=== PATIENT | female | born 1975 | race Caucasian/White ===

== ENCOUNTER 2016-08-22 18:03 | Emergency (ER) | payer OTHER ==
[~2016-08-22 18:03] MED LIST: CLON1TAB PO; FLUV50TA10 PO; METH10TA4 PO
== END 2016-08-22 18:47 | disposition left against medical advice (07) ==
LOC: ER 18:08
DX: Z53.21 Procedure and treatment not carried out due to patient leaving prior to being seen by health care provider (principal)

== ENCOUNTER 2016-09-27 13:35 | Emergency (ER) | payer OTHER ==
[~2016-09-27] VITALS: Ht 167.6 cm; Wt 61.7 kg
[2016-09-27] MEDS ORDERED: IV NORMAL SALINE 1000 ML BAG IV ONE (14:15)
[2016-09-27 14:32] LABS: BILIRUBIN,DIRECT 0.1 mg/dL (0.0-0.2); BILIRUBIN,TOTAL 0.2 mg/dL (0.2-1.0); CREATININE 0.8 mg/dL (0.6-1.3); POTASSIUM 3.9 mmol/L (3.5-5.1); TOTAL PROTEIN, SERUM 7.4 g/dL (6.4-8.2)
[2016-09-27 14:42] LABS: BASOPHILS % (AUTO) 0.4 % (0.0-2.0); EOSINOPHILS # (AUTO) 0.1 K/uL (0.0-0.7); EOSINOPHILS % (AUTO) 1.9 % (0.0-7.0); HEMATOCRIT 40.2 % (37-47); HEMOGLOBIN 13.6 G/DL (12.0-16.0); LYMPHOCYTES # (AUTO) 2.2 K/UL (0.8-4.8); LYMPHOCYTES % (AUTO) 32.2 % (20.5-51.5); MEAN CORPUSCULAR HGB CONC 34 g/dL (32.0-37.0); MEAN CORPUSCULAR VOLUME 88.5 FL (81.0-99.0); MONOCYTES # (AUTO) 0.4 K/UL (0.1-1.30); MONOCYTES % (AUTO) 5.9 % (0.0-11.0); NEUTROPHILS # (AUTO) 4.1 K/UL (1.8-8.9); NEUTROPHILS % (AUTO) 59.6 % (38.5-71.5); PLATELET COUNT (AUTO) 231 K/UL (150-450); RED BLOOD CELL COUNT(AUTO) 4.55 MIL/UL (4.2-5.4); WHITE BLOOD COUNT (AUTO) 6.8 K/UL (4.0-11.2)
--- NOTE | 2016-09-27 14:48 | NUR ---
PT TREATED FOR RECENT PNA AT [facility] WITH ZITHROMAX, STARTED FRIDAY COMPLETED COURSE TODAY. DID NOT FEEL IMPROVEMENT. WENT TO PMD AND STARTED LEVAQUIN IN ADDITION TO ZITHRO. PMD AWARE AND SAID IT WAS OK. STARTED FRI AFT; HAS TAKEN 2 DOSES SO FAR. PT REPORTS SENSATION OF PALPITATIONS YESTERDAY. TODAY LEGS FEEL HEAVY, LIGHTHEADEDNESS. PROVIDER BRENDA. LABS SENT, IVF STARTED. ECG AND CXR DONE. URINE PENDING VOID.
[2016-09-27 16:10] VITALS: BP 120/81
== END 2016-09-27 15:15 | disposition home or self-care (01) ==
LOC: ER 13:39
DX: R20.9 Unspecified disturbances of skin sensation (principal); F17.200 Nicotine dependence, unspecified, uncomplicated; F32.9 Major depressive disorder, single episode, unspecified; F41.9 Anxiety disorder, unspecified
CPT/HCPCS: 36415; 70030-TC; 71010; 85025; 85730; 93005; A4663; J7030

== ENCOUNTER 2016-11-23 15:34 | Emergency (ER) | payer OTHER ==
[~2016-11-23] VITALS: Ht 167.6 cm; Wt 63.5 kg
[2016-11-23] MEDS ORDERED: DESV50TA PO (15:42)
[2016-11-23] MEDS ORDERED: AMPH20CA3 PO (15:42)
[2016-11-23] MEDS ORDERED: LURA40TA PO (15:42)
[2016-11-23] MEDS ORDERED: predniSONE 20 MG TABLET PO ONE (16:15)
[2016-11-23] MEDS ORDERED: ALBUTEROL SULFATE 2.5 MG/ 0.5 ML NEBU NEB ONE (16:15)
--- NOTE | 2016-11-23 16:20 | NUR ---
PATEINT WAS SEEN BY DR RASCON. MEDS GIVEN ORDERED. EKG DONE.
[2016-11-23] MEDS ORDERED: predniSONE 10 MG TABLET ONE (16:25)
[2016-11-23] MEDS ORDERED: predniSONE 50 MG TABLET ONE (16:25)
[2016-11-23] MEDS ORDERED: ALBUTEROL SULFATE 2.5 MG/3 ML NEBU ONE (16:29)
[2016-11-23] MEDS ORDERED: ALBUTEROL SULFATE 2.5 MG/ 0.5 ML NEBU ONE (16:29)
[2016-11-23 16:33] LABS: BASOPHILS # (AUTO) 0.1 K/uL (0.0-8.0); BASOPHILS % (AUTO) 0.7 % (0.0-2.0); EOSINOPHILS # (AUTO) 0.2 K/uL (0.0-0.7); EOSINOPHILS % (AUTO) 2.4 % (0.0-7.0); HEMATOCRIT 42.5 % (37-47); HEMOGLOBIN 14.2 G/DL (12.0-16.0); LYMPHOCYTES % (AUTO) 22.9 % (20.5-51.5); MEAN CORPUSCULAR HGB CONC 34 g/dL (32.0-37.0); MEAN CORPUSCULAR VOLUME 89.7 FL (81.0-99.0); MONOCYTES # (AUTO) 0.3 K/UL (0.1-1.30); MONOCYTES % (AUTO) 3.8 % (0.0-11.0); NEUTROPHILS # (AUTO) 6.3 K/UL (1.8-8.9); NEUTROPHILS % (AUTO) 70.2 % (38.5-71.5); PLATELET COUNT (AUTO) 221 K/UL (150-450); RED BLOOD CELL COUNT(AUTO) 4.74 MIL/UL (4.2-5.4); WHITE BLOOD COUNT (AUTO) 8.9 K/UL (4.0-11.2)
[2016-11-23 16:35] LABS: CREATININE 0.8 mg/dL (0.6-1.3); POTASSIUM 3.7 mmol/L (3.5-5.1)
--- NOTE | 2016-11-23 17:16 | NUR ---
PATIENT STATES SHE FEELS SHE IS BREATHING "EASIER". DC, RX AND FOLLOW UP INSTRUCTIONS GIVEN AND EXPLAINED TO PATIENT WHO STATES SHE UNDERSTANDS ALL INSTRUCTIONS.
== END 2016-11-23 17:20 | disposition home or self-care (01) ==
LOC: ER 15:34
DX: J45.901 Unspecified asthma with (acute) exacerbation (principal); F41.9 Anxiety disorder, unspecified; F43.10 Post-traumatic stress disorder, unspecified; F32.9 Major depressive disorder, single episode, unspecified; F17.200 Nicotine dependence, unspecified, uncomplicated; Z79.899 Other long term (current) drug therapy
CPT/HCPCS: 36415; 71010; 84703; 85025; 93005; A4663; J7512